=== PATIENT | female | born 1965 | race Two or more races ===

== ENCOUNTER 2023-01-04 02:28 | Emergency (ER) | payer MEDICAID, OTHER ==
[~2023-01-04] VITALS: Ht 154.9 cm; Wt 65.0 kg
[2023-01-04 03:32] LABS: Urine Bacteria FEW /hpf (None Seen); Urine Blood 1+ /uL (Negative); Urine Hyaline Cast FEW /lpf (0 - 2); Urine Specific Gravity 1.019 (1.001-1.035); Urine WBC 1 /hpf (0 - 5)
[2023-01-04 03:51] LABS: Basophils # (auto) 0 10 ^3/uL (0-0.2); Basophils % (auto) 0.4 % (0.0-2.0); Eosinophils # (auto) 0.1 10 ^3/uL (0-0.8); Hematocrit 38.8 % (36.0-46.0); Hemoglobin 12.8 g/dL (12.2-16.2); Lymphocytes # (auto) 0.7 10 ^3/uL (0.4-5.4); Lymphocytes % (auto) 7.5 % (10.0-50.0); Mean Corpuscular Hemoglobin 29.3 pg (28.0-32.0); Mean Corpuscular Volume 88.7 fL (80.0-100.0); Monocytes # (auto) 0.5 10 ^3/uL (0-1.3); Monocytes % (auto) 5.5 % (0.0-12.0); Neutrophils # (auto) 7.6 10 ^3/uL (1.6-8.6); Neutrophils % (auto) 85.6 % (37.0-80.0); Red Blood Cells 4.38 10^6/uL (4.0-5.20); Red Cell Distribution Width 15.1 % (11.8-14.3); White Blood Cell 8.8 10^3/uL (4.4-10.8)
[2023-01-04 04:26] LABS: Potassium 3.6 mmol/L (3.5-5.1)
[2023-01-04 04:34] LABS: BUN/Creatinine Ratio 28.4 (10.0-20.0); Bilirubin, Total 0.6 mg/dL (0.2-1.0); Calcium 8.9 mg/dL (8.5-10.1); Total Protein 7.8 g/dL (6.4-8.2)
[2023-01-04] MEDS ORDERED: PERCOT PO (06:18)
[2023-01-04] MEDS ORDERED: CIPR-173 PO (06:18)
[2023-01-04] MEDS ORDERED: ZOFR4T PO (06:18)
[2023-01-04 06:36] VITALS: BP 125/76; TEMP 98
[2023-01-04 06:50] VITALS: PULSE 75; RESP 16; O2SAT 97
== END 2023-01-04 06:58 | disposition home or self-care (01) ==
LOC: ER 02:28
DX: N39.0 Urinary tract infection, site not specified (principal); R10.33 Periumbilical pain; E78.5 Hyperlipidemia, unspecified; I10 Essential (primary) hypertension; Z79.899 Other long term (current) drug therapy
CPT/HCPCS: 36415; 70450; 71045; 71250; 74176; 80053; 81001; 83690; 83880; 84484; 85025

== ENCOUNTER → 2025-01-31 | Day surgery (SDC) | payer MEDICAID ==
[2025-01-28 11:34] LABS: Hematocrit 38.8 % (36.0-46.0); Hemoglobin 13.2 g/dL (12.2-16.2); Mean Corpuscular Hemoglobin 30.2 pg (28.0-32.0); Mean Corpuscular Volume 89.2 fL (80.0-100.0); Nucleated Red Blood Cells % 0.0 %
[2025-01-28 11:37] LABS: INR 0.97 (0.9-1.15); Partial Thromboplastin Time 26.0 SEC (24.5-34.5); Prothrombin Time 10.3 sec (9.3-11.8)
[2025-01-28 11:45] LABS: Alanine Aminotransferase 25 U/L (7-40); Albumin 4.6 g/dL (3.2-4.8); Alkaline Phosphatase 100 U/L (46-116); Anion Gap 10 (5-15); BUN/Creatinine Ratio 17.2 (10.0-20.0); Blood Urea Nitrogen 11 mg/dL (9-23); Calcium 9.3 mg/dL (8.7-10.4); Carbon Dioxide 25 mmol/L (20-31); Potassium 3.7 mmol/L (3.5-5.1); Sodium 142 mmol/L (136-145); Total Protein 7.1 g/dL (5.7-8.2)
[2025-01-28 11:46] LABS: Bilirubin, Total 0.5 mg/dL (0.2-1.0)
[2025-01-28 11:51] LABS: Chloride 107 mmol/L (98-107); Glucose 128 mg/dL (74-106)
[~2025-01-31] VITALS: Ht 152.4 cm; Wt 60.8 kg
[~2025-01-31] MED LIST: LEVO75TA6 PO; LISI20TA56 PO; ROSU40TA81 PO
[2025-01-31 12:00] VITALS: PULSE 64; RESP 18; O2SAT 100
[2025-01-31] MEDS: diphenhdrAMINE HCL 50 MG/1 ML VL ONE (12:04)
[2025-01-31] MEDS: MIDAZOLAM HCL 5 MG/ML-1ML VIAL ONE (12:04)
[2025-01-31] MEDS: LIDOCAINE VISCOUS 2% 15ML UD ONE (12:04)
[2025-01-31] MEDS: fentaNYL CITRATE 100 MCG/2 ML VL ONE (12:04)
--- NOTE | 2025-01-31 12:14 | DVHOP2 ---
Operative Report DATE OF OPERATION: 01/31/25 PROCEDURE: Upper Endoscopy with biopsy. PREOPERATIVE INDICATION: The patient is a 59 -year-old female undergoing endoscopy for chronic GERD and dyspepsia POSTOPERATIVE DIAGNOSES: 1. She had 1-2 cm sliding-type hiatal hernia with slightly irregular squamocolumnar junction and grade a erosive esophagitis 2. Mild antral gastritis and minimal duodenitis of the duodenal bulb PROCEDURE PERFORMED BY: Rosas Yusuf GI NURSE: Penny SCOPE: Olympus videoendoscope. ASA CLASS: 2. PREOPERATIVE MEDICATIONS: Versed 2 mg, Fentanyl 50 mcg, Benadryl 50 mg I administered moderate sedation throughout this _7_ minutes procedure. An inde pendent trained observer pushed medications at my direction, and monitored the patient's level of consciousness and physiological status throughout. PROCEDURE IN DETAIL: After obtaining an informed consent, the patient was placed on left lateral decubitus position. The patient was then sedated with the above medications. A bite block was placed between her teeth. The endoscope was then passed through the oropharynx, into the esophagus, and through the stomach and pylorus up to the second and third part of the duodenum. The endoscope was then withdrawn. The 2nd and 3rd part of the duodenum were normal and the duodenal bulb showed minimal duodenitis. Duodenal biopsies were obtained The pre-pyloric area antrum and body showed mild gastritis. Gastric biopsies were obtained. On retroflexion the fundus and cardia were normal. The endoscope was then withdrawn into distal esophagus where patient had a 1-2 cm sliding-type hiatal hernia with irregular squamocolumnar junction and grade a erosive esophagitis GE junction biopsies were obtained. The remaining distal and proximal esophagus and oropharynx were unremarkable The patient tolerated the procedure well without difficulty. COMPLICATIONS : None SPECIMENS: Duodenal biopsies Gastric biopsies GE junction biopsies DISPOSITION: Stable D/C to home PLAN: 1. Await for biopsy result 2. Will place pt on Protonix 40 mg p.o. daily 3. Lifestyle and dietary modifications for GERD 4. Outpatient follow up with me in 4-6 weeks to review results and discuss further management ROSAS YUSUF MD Jan 31, 2025 12:14
[2025-01-31 12:17] VITALS: PULSE 61; RESP 13; TEMP 99; O2SAT 97
[2025-01-31 12:40] VITALS: BP 118/85; PULSE 58; RESP 15; O2SAT 99
== END | disposition home or self-care (01) ==
LOC: GI 08:35
PROVIDERS: ATTEND Internal Medicine Gastroenterology
DX: K29.50 Unspecified chronic gastritis without bleeding (principal); K31.A0 Gastric intestinal metaplasia, unspecified; K21.00 Gastro-esophageal reflux disease with esophagitis, without bleeding; K29.80 Duodenitis without bleeding; K44.9 Diaphragmatic hernia without obstruction or gangrene; I10 Essential (primary) hypertension; E78.5 Hyperlipidemia, unspecified; E03.9 Hypothyroidism, unspecified; Z79.899 Other long term (current) drug therapy; Z98.890 Other specified postprocedural states
CPT/HCPCS: 36415; 43239; 80053; 85025; 85610; 85730; 88305; 88312; 88342; J1200; J2250; J3010; J7030